=== PATIENT | female | born 1945 | race Caucasian/White ===

== ENCOUNTER 2021-08-24 14:13 | Emergency (ER) | payer MEDICARE, OTHER, SELFPAY ==
--- NOTE | 2021-08-24 14:20 | XR_ITS ---
WS: [id number] Exam: XR chest 1V portable [id number] Date/Time of Exam: 08/24/2021 2:27 PM Reason For Exam: dyspnea/cough No priors. The lungs are clear and fully inflated. Cardiomediastinal silhouette is unremarkable. No pleural effu sions. Regional bony elements are intact. XR/XR chest 1V portable [id number] IMPRESSION: 1. No acute cardiopulmonary finding.
--- NOTE | 2021-08-24 14:44 | ED_ITS ---
HPI - Neuro Symptoms/Deficit General: Chief Complaint: General Medical Stated Complaint: TREMORS/ HYPERTENSIVE Time Seen by Provider: 08/24/21 14:19 History of Present Illness: HPI Narrative: 76-year-old female presents to the emergency room from care home. She has some tremor and is hypertensive. Also concerned that she may have some new right-sided deficit. Her last known well was a 8 AM this morning she has a previous CVA with resulting left-sided deficits including a foot drop dysarthria and weakness in the left arm. She has new apparent deficits on the right side with the right leg right arm. She denies any chest pain or shortness of breath she had some difficulty with word finding. Recent illness no abdominal pain dysuria urgency or frequency GI or problems. Onset (ago): hour(s) (7) Time: 14:50 Last Observed Normal: 08:00 Location: speech, dysarthria, right arm and right leg History of same: Yes Severity: mild Quality: weak Relieving factors: none Exacerbating factors: none Associated symptoms: Deny chest pain, cough, diaphoresis, fevers/chills, headache(s), anorexia, malaise, nausea, seizures, short of breath, syncope, t ingling, vertigo, vomiting or weakness Treatments Prior to Arrival: none Review of Systems Const: Denies: malaise or diaphoresis ENMT: Denies: throat pain, ear or mastoid pain, nasal discharge or nasal congestion Card: Denies: chest pain or syncope Resp: Denies: dyspnea, productive cough or non-productive cough GI: Denies: nausea or vomiting : Denies: flank pain, difficulty voiding, dysuria, urinary frequency or urinary urgency Skin/Breast: Denies: rash or pruritus Neuro: Denies: headache(s) or vertigo NIH stroke score NIHSS: Level Of Consciousness - 1a: 0 Level Of Consciousness Questions - 1b: Both Correct Level Of Consciousness Commands - 1c: Both Correct Best Gaze - 2: Normal Visual Fischer - 3: No Visual Loss Facial Palsy - 4: Normal Motor Arm Right - 5: Drift (deficit due to previosu CVA) Motor Arm Left - 5: Drift Motor Leg Right - 6: No Effort Against Friendship (deficit from previosu CVA) Motor Leg Left - 6: Effort Against Friendship Limb Ataxia - 7: Present In Two Limbs Sensory - 8: Normal Best Language - 9: No Aphasia Dysarthia - 10: Mild/Moderate Dysarthia (deficit due to previous CVA) Extinction And Inattention - 11: 0 Score: Total Score: 10 Physical Exam Const: COMMON NORMALS: no acute distress GENERAL APPEARANCE: cooperative and comfortable HENMT: COMMON NORMALS: normocephalic, atraumatic and hearing grossly normal bilaterally HEAD & SCALP: normocephalic and atraumatic Eye: COMMON NORMALS: Equal, round and reactive pupils present, EOMs intact bilaterally, conjunctivae normal and no scleral icterus CONJUNCTIVA: Yes conjunctivae normal PUPIL: Yes Equal, round and reactive pupils present Neck/C-Spine: COMMON NORMALS: no JVD Resp: COMMON NORMALS: normal respiratory effort, No retractions, No use of accessory muscles and clear to auscultation bilaterally AUSCULTATION: clear to auscultation bilaterally Cardio: COMMON NORMALS: no JVD, regular rate, regular rhythm and No murmurs present (Cardio) RATE: regular rate RHYTHM: regular rhythm GI: COMMON NORMALS: Soft to palpation and No hepatosplenomegaly present AUSCULTATION: Yes normoactive bowel sounds PALPATION: Yes Soft to palpation, No Tenderness to palpation present (GI), No Guarding due to palpation present (GI) and Yes No hepatosplenomegaly present Extremity: COMMON NORMALS: normal to inspection, capillary refill normal, no clubbing, cyanosis or edema, no calf tenderness and no pedal edema Skin: COMMON NORMALS: no rashes or lesions noted GENERAL SKIN EXAM: no rashes or lesions noted Course Vital Signs: Vital signs: Vital Signs Temperature 98.7 F 08/24/21 15:06 Pulse Rate 76 08/24/21 15:06 Respiratory Rate 20 H 08/24/21 15:06 Blood Pressure 191/124 08/24/21 15:06 Pulse Oximetry 97 08/24/21 15:06 MDM - Neuro Symptoms/Deficit MDM Narrative: Medical decision making narrative: Discussed with family members. I do think the patient may have had a small acute CVA. She has some dementia she is not really able to participate in any therapy activities in a meaningful sense. Her symptoms are relatively minimal she is outside the timeframe for any kind of intervention. Initially we are trying to get all the family difficulty doing so and were planning to put the patient on observation however we did eventually make contact with the son. Discussed with family as well as Dr. Huber the patient's attending physician at the care home. We are all in agreement that no intervention will be pursued. Dr. Hbuer felt it was appropriate to send patient back to the care home where they can control blood pressure there attempts at therapy to the extent that the patient is able to participate can be pursued in the care home setting. Dr. Huber agrees. Family is in agreement as well patient discharged back to care home. Lab Data: Labs: Lab Results 08/24/21 08/24/21 08/24/21 14:48 14:48 14:48 WBC 6.2 10^3/uL 10^3/ uL (4.0-10.0) RBC 3.80 10^6/uL L 10 ^6/uL (4.1-5.3) Hgb 12.1 g/dL g/dL (11.5-15.3) Hct 37.3 % % (37.0-47.0) MCV 98.2 fl fl (81-99) MCH 31.8 pg pg (28.0-34.0) MCHC 32.4 g/dL g/dL (30.0-36.0) RDW 12.7 % % (12.1-15.1) Plt Count 208 10^3/cmm 10^3 /cmm (130-400) MPV 11.3 fL H fL (7.4-10.4) Neut % (Auto) 78.4 % % Lymph % (Auto) 13.6 % % Weston % (Auto) 6.0 % % Eos % (Auto) 1.1 % % Baso % (Auto) 0.6 % % Neut # (Auto) 4.82 10^3/uL 10^3 /uL (1.8-7.7) Lymph # (Auto) 0.8 10^3/uL 10^3/ uL (0.8-4.8) Weston # (Auto) 0.4 10^3/uL 10^3/ uL (0.2-0.9) Eos # (Auto) 0.1 10^3/uL 10^3/ uL (0.0-0.8) Baso # (Auto) 0.0 10^3/uL 10^3/ uL (0.0-0.1) Nucleated RBC % (a uto) 0 % % Nucleated RBCs # 0.0 /100WBC /100W BC PT 21.80 SECONDS H S ECONDS (12.1-14.9) INR 1.85 H (0.8-1.2) APTT 33.4 SECONDS SECO NDS (23.9-36.7) Sodium 142 mmol/L mmol/L (136-145) Potassium 4.2 mmol/L mmol/L (3.5-5.1) Chloride 108 mmol/L H mmol /L (98-107) Carbon Dioxide 23 mmol/L mmol/L (22-29) Anion Gap 15.2 (5-19) BUN 33 mg/dL H mg/dL (8-23) Creatinine 1.7 mg/dL H mg/dL (0.5-0.9) GFR Calculation Not Reportable Glucose 154 mg/dL H mg/dL (65-115) POC Glucose Calculated Osmolal ity 304 mOsm/kg H mOs m/kg (285-295) Calcium 8.5 mg/dL mg/dL (8.5-10.5) Total Bilirubin 0.5 mg/dL mg/dL (0.15-1.2) AST 13 U/L U/L (0-32) ALT 9 U/L U/L (0-33) Alkaline Phosphata se 86 IU/L IU/L (35-105) Total Protein 7.1 g/dL g/dL (6.6-8.7) Albumin 3.6 g/dL g/dL (3.5-5.2) Globulin 3.5 g/dL g/dL (1.3-4.6) Urine Color Urine Appearance Urine pH Ur Specific Gravit y Urine Protein Urine Glucose (UA) Urine Ketones Urine Blood Urine Nitrate Urine Bilirubin Urine Urobilinogen Ur Leukocyte Ann [place] ase Urine RBC Urine WBC Ur Squamous Epith Cells Amorphous Sediment Urine Bacteria 08/24/21 08/24/21 16:25 17:16 WBC RBC Hgb Hct MCV MCH MCHC RDW Plt Count MPV Neut % (Auto) Lymph % (Auto) Weston % (Auto) Eos % (Auto) Baso % (Auto) Neut # (Auto) Lymph # (Auto) Weston # (Auto) Eos # (Auto) Baso # (Auto) Nucleated RBC % (a uto) Nucleated RBCs # PT INR APTT Sodium Potassium Chloride Carbon Dioxide Anion Gap BUN Creatinine GFR Calculation Glucose POC Glucose 119 mg/dL H mg/dL (70-110) Calculated Osmolal ity Calcium Total Bilirubin AST ALT Alkaline Phosphata se Total Protein Albumin Globulin Urine Color Straw (Yellow) Urine Appearance Hazy A (CLEAR) Urine pH 7 (5-7) Ur Specific Gravit y 1.010 (1.005-1.030) Urine Protein 1+ H (Negative) Urine Glucose (UA) Norm (Normal) Urine Ketones Negative (Negative) Urine Blood Neg (Negative) Urine Nitrate Negative (Negative) Urine Bilirubin Neg (Negative) Urine Urobilinogen Norm mg/dL mg/dL (Negative) Ur Leukocyte Ann Marie ase Negative (Negative) Urine RBC None /hpf /hpf (0-2) Urine WBC None /hpf /hpf (0-5) Ur Squamous Epith Cells 25-40 /hpf H /hpf (0-5) Amorphous Sediment Not Reportable Urine Bacteria Trace /hpf /hpf (NONE) Discharge Plan Discharge Patient Disposition: Home Clinical Impression: Acute CVA (cerebrovascular accident), Essential hypertension Condition: Stable Prescriptions: No Action amlodipine 10 mg tablet 10 mg PO DAILY@08 RF: 0 Atrovent HFA 17 mcg/actuation HFA aerosol inhaler 1 puff inhalation QID RF: 0 clonidine HCl 0.1 mg tablet 0.1 mg PO Q8H PRN (Reason: Blood Pressure) RF: 0 furosemide [Lasix] 20 mg tablet 20 mg PO DAILY@08 RF: 0 metoprolol tartrate [Lopressor] 100 mg tablet 100 mg PO BID@08,20 RF: 0 polyethylene glycol 3350 [Miralax] 17 gram/dose powder 17 g PO DAILY@08 RF: 0 ondansetron HCl [Zofran] 4 mg tablet 4 mg PO Q6H PRN (Reason: Nausea And Vomiting) RF: 0 tramadol [Ultram] 50 mg tablet 50 mg PO Q4H PRN (Reason: Pain) Qty: 90 RF: 5 hydrocodone-acetaminophen 5-325 mg tablet 1 tab PO Q6H PRN (Reason: Pain) 30 Days Qty: 60 RF: 0 Lexapro 10 mg Tablet 10 mg PO DAILY@08 RF: 0 losartan 50 mg tablet 50 mg PO DAILY@20 RF: 0 Discharge Orders: Discharge ED (Routine); Ordered 08/24/21 Ordered By: Félix Melendez Referrals: Buddy Huber MD [Primary Care Provider] - Discharge Diet: Usual diet Discharge Activity: Resume usual activity Patient Instructions: Opioid Safety Coding Level of Care Code ED Head Baker for Chg Fwd Exam Comprehensive
--- NOTE | 2021-08-24 14:47 | ECG_ITS ---
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: : 1945 Requested By: Félix Sawyer Order Number: [id number] Reading MD: ARABELLA CARLOS Measurements Intervals [place] Rate: 67 P: 14 [place]: 217 QRS: -42 QRSD: 108 T: 128 QT: 436 QTc: 463 Interpretive Statements SINUS RHYTHM WITH FIRST DEGREE AV BLOCK LEFT AXIS DEVIATION [QRS AXIS < -30] LEFT VENTRICULAR HYPERTROPHY AND ST-T CHANGE [VOLTAGE CRITERIA PLUS ST/T ABNORMALITY] No previous ECG available for comparison Electronically Signed On 08-24-2021 20:02:42 CDT by ARABELLA CARLOS [email or web address] centerFiesta Frogcleveland [email or web address] [id number]
--- NOTE | 2021-08-24 14:47 | CT_ITS ---
WS: [id number] CT HEAD NONCONTRAST HISTORY: Symptoms of Acute Stroke TECHNIQUE: Contiguous axial imaging performed through the brain in 2.5 mm imaging. Bone and soft tiss ue windows. Sagittal and coronal reformats reviewed. All CT scans at [facility] use at least one of these dose optimization techniques: automated exposure control; mA and/or kV adjustment per pa tient size (includes targeted exams where dose is matched to clinical indication); or iterative recon struction. DLP: 939.56 mGy.cm COMPARISON: None available. No acute intracranial hemorrhage, midline shift or mass effect. There is moderate atrophy bilaterally. Remote infarct with encephalomalacia in the RIGHT occipital lo be. Additional advanced chronic microvascular ischemic changes. Multiple lacunar infarcts in the thal ami and basal ganglia bilaterally. Small lacunar infarct in the RIGHT caudate body. Ventricles: Normal size with no hydrocephalus. Paranasal sinuses: As visualized are clear. Mastoid air cells: Well pneumatized. Calvarium and scalp: Skull is intact with no soft tissue edema or swelling. CT/CT head wo con* [id number] IMPRESSION: 1. No acute hemorrhage or edema. 2. Prior RIGHT occipital lobe infarct with encephalomalacia. 3. Advanced chronic microvascular ischemic changes and numerous bilateral lacu flora infarcts. New superimposed infarct may be difficult to visualize with the a mount of chronic disease that is present.
--- NOTE | 2021-08-24 14:52 | PC.PHAR ---
PT IS FROM [facility]-FRANCES Preston NURSE AT [facility] STATES THE PT TOOK HER AM MEDS STATES SOMETIMES THE PT WILL REFUSE TO TAKE HER MEDICATIONS
[2021-08-24 14:53] LABS: Basophils % 0.6 %; Eosinophils # 0.1 10^3/uL (0.0-0.8); Eosinophils % 1.1 %; Hematocrit 37.3 % (37.0-47.0); Hemoglobin 12.1 g/dL (11.5-15.3); Lymphocytes # 0.8 10^3/uL (0.8-4.8); Lymphocytes % 13.6 %; Mean Corpuscular HGB Conc 32.4 g/dL (30.0-36.0); Mean Corpuscular Hemoglobin 31.8 pg (28.0-34.0); Mean Corpuscular Volume 98.2 fl (81-99); Mean Platelet Volume 11.3 fL (7.4-10.4); Monocytes # 0.4 10^3/uL (0.2-0.9); Neutrophils # 4.82 10^3/uL (1.8-7.7); Neutrophils % 78.4 %; Nucleated Red Blood Cells % 0 %; Platelet Count 208 10^3/cmm (130-400); Red Cell Distribution Width 12.7 % (12.1-15.1); White Blood Count 6.2 10^3/uL (4.0-10.0)
[2021-08-24 15:06] VITALS: BP 191/124; PULSE 76; RESP 20; TEMP 37.1; O2SAT 97; BMI 23.9
[2021-08-24 15:09] LABS: INR 1.85 (0.8-1.2)
[2021-08-24 15:10] LABS: Partial Thromboplastin Time 33.4 SECONDS (23.9-36.7)
[2021-08-24 15:13] LABS: Alanine Aminotransferase 9 U/L (0-33); Albumin Level 3.6 g/dL (3.5-5.2); Alkaline Phosphatase 86 IU/L (35-105); Anion Gap 15.2 (5-19); Aspartate Amino Transferase 13 U/L (0-32); Blood Urea Nitrogen 33 mg/dL (8-23); Calcium 8.5 mg/dL (8.5-10.5); Carbon Dioxide 23 mmol/L (22-29); Chloride 108 mmol/L (98-107); Globulin 3.5 g/dL (1.3-4.6); Glucose 154 mg/dL (65-115); Osmolality Calculated 304 mOsm/kg (285-295); Potassium 4.2 mmol/L (3.5-5.1); Sodium 142 mmol/L (136-145); Total Bilirubin 0.5 mg/dL (0.15-1.2); Total Protein 7.1 g/dL (6.6-8.7)
[2021-08-24 17:03] LABS: Add Urine Microscopic? YES; Bilirubin Urine Neg (Negative); Blood Urine Neg (Negative); Glucose Urine UA Norm (Normal); Ketones Urine Negative (Negative); Leukocyte Esterase Urine Negative (Negative); Nitrate Urine Negative (Negative); Protein Urine 1+ (Negative); Urine Appearance Hazy (CLEAR); Urine Color Straw (Yellow); Urobilinogen Urine Norm (Negative); pH Urine 7 (5-7)
[2021-08-24 17:08] LABS: Add Urine Culture? No; Bacteria Urine TRACE /hpf; Squamous Epithelial Cell Urine 25-40 /hpf (0-5)
[2021-08-24 17:18] LABS: Glucose Point of Care 119 mg/dL (70-110)
== END 2021-08-24 18:45 | disposition home or self-care (01) ==
PROVIDERS: Emergency Provider Family Medicine; PCP Internal Medicine
DX: I63.9 Cerebral infarction, unspecified (principal); I10 Essential (primary) hypertension
CPT/HCPCS: 36416; 70450; 71045; 80053; 81001; 82962; 85025; 85610; 85730; 93005; 99282

== ENCOUNTER 2021-10-08 10:42 | Outpatient (CLI) | payer OTHER, MEDICARE, SELFPAY ==
--- NOTE | 2021-10-08 10:45 | FL_ITS ---
WS: [id number] MODIFIED BARIUM SWALLOW TECHNIQUE: Modified barium swallow with speech therapy using multiple consistencies. FLUOROSCOPY TIME: 2.1 minutes. CLINICAL INFORMATION: Other dysphagia COMPARISON: None. FINDINGS: Multiple consistencies utilized. Small amount of penetration with nectar and thin liquid consistencie s which progressively worsens with increasing liquid volume. Pooling in the vallecula which cleared w ith additional swallows. Aspiration visualized with cracker consistency. No difficulties with barium tablet. FL/FL barium swallow modifd [id number] IMPRESSION: 1. Small amount of penetration with nectar and thin liquid consistencies 2. Aspiration visualized with cracker consistency.
== END 2021-10-08 10:43 | disposition home or self-care (01) ==
PROVIDERS: PCP Internal Medicine; Visit Provider Internal Medicine
DX: R13.19 Other dysphagia (principal)
CPT/HCPCS: 74230; 92611

== ENCOUNTER → 2022-12-01 11:38 | Outpatient (BNVA) | payer MEDICARE, OTHER, SELFPAY | PROVIDERS: PCP Internal Medicine; Visit Provider Thoracic Surgery (Cardiothoracic Vascular Surgery) | DX: L89.152 Pressure ulcer of sacral region, stage 2 (principal); L89.300 Pressure ulcer of unspecified buttock, unstageable ==

== ENCOUNTER → 2022-12-08 13:49 | Outpatient (BNVA) | payer MEDICARE, OTHER, SELFPAY | PROVIDERS: PCP Internal Medicine; Visit Provider Thoracic Surgery (Cardiothoracic Vascular Surgery) | DX: L89.152 Pressure ulcer of sacral region, stage 2 (principal); L89.322 Pressure ulcer of left buttock, stage 2 ==

== ENCOUNTER → 2022-12-15 13:46 | Outpatient (BNVA) | payer MEDICARE, OTHER, SELFPAY | PROVIDERS: PCP Internal Medicine; Visit Provider Thoracic Surgery (Cardiothoracic Vascular Surgery) | DX: L89.322 Pressure ulcer of left buttock, stage 2 (principal) ==

== ENCOUNTER → 2022-12-22 15:21 | Outpatient (BNVA) | payer MEDICARE, OTHER, SELFPAY | PROVIDERS: PCP Internal Medicine; Visit Provider Thoracic Surgery (Cardiothoracic Vascular Surgery) | DX: L98.412 Non-pressure chronic ulcer of buttock with fat layer exposed (principal) ==

== ENCOUNTER → 2022-12-29 14:43 | Outpatient (BNVA) | payer MEDICARE, OTHER, SELFPAY | PROVIDERS: PCP Internal Medicine; Visit Provider Thoracic Surgery (Cardiothoracic Vascular Surgery) | DX: L98.412 Non-pressure chronic ulcer of buttock with fat layer exposed (principal) ==